=== PATIENT | male | born 1965 | race African-American/Black ===

== ENCOUNTER 2019-06-27 21:06 | Emergency (ER) | payer MEDICAID ==
[~2019-06-27] VITALS: Ht 177.8 cm; Wt 87.0 kg
[2019-06-27] MEDS ORDERED: ONDANSETRON HCL 4MG/2ML INJ IV STA (22:19)
[2019-06-27] MEDS ORDERED: SODIUM CHLORIDE 0.9% 1,000 ML IV ONE (22:19)
[2019-06-27] MEDS ORDERED: KETOROLAC 30MG/ML VIAL IV STA (22:19)
[2019-06-27] MEDS ORDERED: MORPHINE SULFATE 4 MG/ML CPJ (NOT FOR IM USE) IV STA (22:19)
[2019-06-28 01:26] VITALS: BP 133/73
== END 2019-06-28 01:31 | disposition home or self-care (01) ==
LOC: ER 21:06
DX: M17.11 Unilateral primary osteoarthritis, right knee (principal); M25.561 Pain in right knee; G89.11 Acute pain due to trauma; W01.0XXA Fall on same level from slipping, tripping and stumbling without subsequent striking against object, initial encounter; Y93.89 Activity, other specified; Y92.89 Other specified places as the place of occurrence of the external cause
CPT/HCPCS: 73562; 96361; 96374; 96375; 99283; J1885; J2270; J2405; J7030